=== PATIENT | male | born 1980 | race African-American/Black ===

== ENCOUNTER 2019-10-29 17:25 | Emergency (ER) | payer OTHER ==
[~2019-10-29] VITALS: Ht 193 cm; Wt 106.5 kg
--- NOTE | 2019-10-29 18:12 | ED Back Pain ---
General Chief Complaint: Back Problems Stated Complaint: LOW BACK PAIN Nursing Triage Note: PATIENT STOOD AFTER USING TOILET, LIGHTHEADED, FELL AND HIT BACK ON TOILET Nursing Sepsis Screen: No Definite Risk History of Present Illness Date Seen by Provider: October 29, 2019 Time Seen by Provider: 17:50 Initial Comments 39-year-old -[place]i male presents after falling today and hitting his low back on the toilet. He states he was using the toilet when he arose and became dizzy causing the fall. He denies hitting his head or loss of consciousness. He is experiencing low back pain and no pain radiating into his legs. He took ibuprofen earlier this morning no medicine since then. He has a history of her right femur fracture no other back or lower extremity issues. Location: Lumbar Spine Timing/Duration: 12 Hours Severity: Mild Pain/Injury Location: Back Method of Injury: Fall Associated Symptoms: muscle spasms; No weakness, No numbness in legs/feet, No tingling in legs/feet, No sensory/motor loss; lower back pain; No loss of bladder control, No loss of bowel control Allergies and Home Medications Allergies Coded Allergies: No Known Drug Allergies (Unverified , 10/29/19) Patient Home Medication List Home Medication List Reviewed: Yes Review of Systems Constitutional: no symptoms reported, see HPI Musculoskeletal: see HPI, back pain Past Ysgsjmt-Lmhoez-Zzdkyf Hx Past Med/Social Hx: Reviewed Nursing Past Med/Soc Hx Patient Social History Alcohol Use: Occasionally Uses Recreational Drug Use: Yes Drug of Choice: MARIJUANA Smoking Status: Never a Smoker 2nd Hand Smoke Exposure: No Recent Foreign Travel: No Contact w/Someone Who Travel: No Recent Infectious Disease Expo: No Recent Hopitalizations: No Physical Abuse: No Sexual Abuse: No Mistreated: No Fear: No Seasonal Allergies Seasonal Allergies: No Past Medical History Surgeries: Yes Orthopedic Physical Exam Vital Signs Vital Signs - First Documented 10/29/19 17:41 Temp 36.9 Pulse 85 Resp 20 B/P (MAP) 140/95 (110) Pulse Ox 99 O2 Delivery Room Air Capillary Refill : Less Than 3 Seconds Height, Weight, BMI Height: '" Weight: lbs. oz. kg; 28.00 BMI Method: General Appearance: No Apparent Distress, WD/WN Neck: Full Range of Motion, Normal Inspection, Non Tender, Supple Cardiovascular: Regular Rate, Rhythm, No Edema, No Murmur, Normal Peripheral Pulses Respiratory: Chest Non Tender, Lungs Clear, Normal Breath Sounds Back: Normal Inspection, Decreased Range of Motion, Muscle Spasm (secondary to pain left paraspinal muscles), Vertebral Tenderness, Other (walks with an antalgic but steady gait, able to rise on to toes and heels. Power V/V L4 to S1.) Extremity: Normal Capillary Refill, Normal Inspection, Normal Range of Motion, No Pedal Edema Neurologic/Psychiatric: Alert, Oriented x3, No Motor/Sensory Deficits, Normal Mood/Affect Skin: Normal Color, Warm/Dry Progress/Results/Core Measures Results/Orders Lab Results Laboratory Tests Test 10/29/19 18:15 Range/Units My Orders Orders - ABHISHEK SINGH Drug Screen Stat (Urine) (10/29/19 17:35) Ua Culture If Indicated (10/29/19 17:35) Lumbar Spine - 2-3 Views (10/29/19 17:48) Orphenadrine Injection (Norflex Injectio (10/29/19 18:30) Ketorolac Injection (Toradol Injection) (10/29/19 18:19) Vital Signs/I&O 10/29/19 17:41 Temp 36.9 Pulse 85 Resp 20 B/P (MAP) 140/95 (110) Pulse Ox 99 O2 Delivery Room Air Blood Pressure Mean: 110 Diagnostic Imaging Diagonstic Imaging: Xray Plain Films/CT/US/NM/MRI: other (lumbar spine) Comments NAME: OSCAR TAFOYA Sarah [facility] REC#: [id number] PT STATUS: REG ER : 1980 PHYSICIAN: ABHISHEK SINGH ADMIT DATE: 10/29/19/ER Draft Date of Exam:10/29/19 LUMBAR SPINE - 2-3 VIEWS EXAM: LUMBAR SPINE - 2-3 VIEWS INDICATION: Fall. Back pain. COMPARISON: None. FINDINGS: Normal alignment. Vertebral body heights are preserved. No fractures. No substantial spondylotic change. Soft tissue shadows are unremarkable. IMPRESSION: Negative lumbar spine radiographs. Dictated on workstation # [id number] Dict: 10/29/191815 Trans: 10/29/191817 [facility] [id number] Interpreted by: TIAGO GAMEZ MD Electronically signed by: Reviewed: Reviewed by Me Departure Impression Primary Impression: Lumbar back pain Additional Impression: Blunt trauma Disposition: 01 HOME, SELF-CARE Condition: Improved Departure-Patient Inst. Decision time for Depature: 18:20 Patient Instructions: Lumbar Muscle Strain (DC), Low Back Pain (DC) Add. Discharge Instructions: Alternate heat and ice to your low back. Alternate Tylenol 650 mg and ibuprofen 600 mg every 4 hours for pain. Use muscle relaxant as needed for symptoms. Return to work as tolerated. Return to the emergency department for new, urgent health care needs or if you develop urine or stool incontinence or retention. All discharge instructions reviewed with patient and/or family. Voiced understanding. Scripts Cyclobenzaprine HCl (Cyclobenzaprine HCl) 10 Mg Tablet 10 MG PO Q8H PRN for SPASMS, #15 TAB 0 Refills Prov: ABHISHEK SINGH 10/29/19 Work/School Note: Work Release Form Date Seen in the Emergency Department: October 29, 2019 Restrictions: No Restrictions Other Restrictions Listed Below: Return to work, as tolerated. ABHISHEK SINGH October 29, 2019 18:12
--- NOTE | 2019-10-29 18:18 | Diagnostic Imaging Report ---
EXAM: LUMBAR SPINE - 2-3 VIEWS INDICATION: Fall. Back pain. COMPARISON: None. FINDINGS: Normal alignment. Vertebral body heights are preserved. No fractures. No substantial spondylotic change. Soft tissue shadows are unremarkable. IMPRESSION: Negative lumbar spine radiographs. Dictated by: Dictated on workstation # [id number]
[2019-10-29] MEDS ORDERED: KETOROLAC 60 MG/2 ML VIAL IM STA (18:19)
[2019-10-29 18:24] LABS: BILIRUBIN,URINE NEGATIVE (NEGATIVE); CLARITY,URINE CLEAR; COLOR,URINE YELLOW; GLUCOSE, URINE (UA) NEGATIVE (NEGATIVE); KETONES,URINE NEGATIVE (NEGATIVE); LEUKOCYTE ESTERASE ,URINE TRACE (NEGATIVE); NITRITE,URINE NEGATIVE (NEGATIVE); PROTEIN,URINE NEGATIVE (NEGATIVE)
[2019-10-29] MEDS ORDERED: CYCL10TA9 PO (18:28)
[2019-10-29 18:30] LABS: BACTERIA,URINE NEGATIVE /HPF; SQUAMOUS EPITHELIAL CELL,UR RARE /HPF; WBC,URINE RARE /HPF
[2019-10-29] MEDS ORDERED: ORPHENADRINE 60 MG/2 ML (NORFLEX) AMP IM ONE (18:30)
[2019-10-29 18:35] VITALS: BP 140/95
[2019-10-29 18:35] LABS: AMPHETAMINE SCREEN, URINE NEGATIVE (NEGATIVE); BARBITURATE SCREEN URINE NEGATIVE (NEGATIVE); BENZODIAZEPINES SCREEN URINE NEGATIVE (NEGATIVE); CANNABINOID SCREEN, URINE NEGATIVE (NEGATIVE); COCAINE SCREEN URINE NEGATIVE (NEGATIVE); METHADONE STAT NEGATIVE (NEGATIVE); METHAMPHETAMINE SCREEN URINE S NEGATIVE (NEGATIVE); OPIATE SCREEN URINE NEGATIVE (NEGATIVE); OXYCODONE STAT NEGATIVE (NEGATIVE); PROPOXYPHENE STAT NEGATIVE (NEGATIVE); TRICYCLIC ANTIDEPRESSANTS SCRE NEGATIVE (NEGATIVE)
--- OUTSIDE RECORDS SUMMARY | 2019-10-29 20:16 | XMS REPORT | Continuity of Care Document ---
Demographics Preferred Language Unknown Marital Status Unknown Yazidism Affiliation Unknown Race Unknown Ethnic Group Unknown Author Organization Unknown Address Unknown Phone Unavailable Allergies There is no data. Medications There is no data. Problems There is no data. Procedures There is no data. Results Test Result Range Complete urinalysis with reflex to cultu re - 10/29/19 18:15 Urine color determination YELLOW NRG Urine clarity determination CLEAR NR G Urine pH measurement by test strip 6.0 5-9 Specific gravity of urine by test strip >= 1.016-1.022 Urine protein assay by test strip, semi-quantitative NEGATIVE NEGATIVE Urine glucose detection by automated test strip NE GATIVE NEGATIVE Erythrocytes detection in urine sediment by light micr oscopy NEGATIVE NEGATIVE Urine ketones detection by automated test strip NE GATIVE NEGATIVE Urine nitrite detection by test strip NEGATIVE NEGATIVE Urine total bilirubin detection by test strip NEGA TIVE NEGATIVE Urine urobilinogen measurement by automated test strip (mass/volume) 0.2 mg/dL < = 1.0 Urine leukocyte esterase detection by dipstick TRA CE NEGATIVE Automated urine sediment erythrocyte cou nt by microscopy (number/high power field) NONE NRG Automated urine sediment leukocyte count by microscopy (number/high power field) RARE NRG Bacteria detection in urine sediment by light microsco py NEGATIVE NRG Squamous epithelial cells detection in u rine sediment by light microscopy RARE NRG Crystals detection in urine sediment by light microsco py NONE NRG Casts detection in urine sediment by light microscopy NONE NRG Mucus detection in urine sediment by light microscopy NEGATIVE NRG Complete urinalysis with reflex to culture NO NRG Urine drug screening test - 10/29/19 18: 15 Urine phencyclidine detection by screening method NEGATIVE NEGATIVE Urine benzodiazepines detection by screening method NEGATIVE NEGATIVE Urine cocaine detection NEGATIVE NEGATI VE Urine amphetamines detection by screening method N EGATIVE NEGATIVE Urine methamphetamine detection by screening method NEGATIVE NEGATIVE Urine cannabinoids detection by screening method N EGATIVE NEGATIVE Urine opiates detection by screening method NEGATI VE NEGATIVE Urine barbiturates detection NEGATIVE N EGATIVE Screening urine tricyclic antidepressants detection NEGATIVE NEGATIVE Urine methadone detection by screening method NEGA TIVE NEGATIVE Urine oxycodone detection NEGATIVE NEGA TIVE Urine propoxyphene detection NEGATIVE N EGATIVE Encounters ACCT No. Visit Date/Time Discharge Status Pt. Type Provider Facility Loc./Unit Complaint [id number] 10/29/2019 18:31:00 Document Registration
== END 2019-10-29 18:35 | disposition home or self-care (01) ==
LOC: ER 17:27
DX: G89.11 Acute pain due to trauma (principal); M54.5 Low back pain; W18.39XA Other fall on same level, initial encounter; W22.8XXA Striking against or struck by other objects, initial encounter
CPT/HCPCS: 72100; 80306; 81000; 96372